=== PATIENT | female | born 1990 | race Two or more races ===

== ENCOUNTER 2018-03-15 14:56 | Emergency (ER) | payer MEDICAID ==
[~2018-03-15] VITALS: Ht 172.7 cm; Wt 79.6 kg
[2018-03-15 15:02] VITALS: BP 108/68
[2018-03-15] MEDS ORDERED: LIDOCAINE-MPF 2% ,5ML ONE (15:25)
[2018-03-15] MEDS ORDERED: LIDOCAINE-MPF 1%, 5ML INFIL ONE (15:30)
== END 2018-03-15 16:23 | disposition home or self-care (01) ==
LOC: ED 16:00
DX: L03.221 Cellulitis of neck (principal); F11.20 Opioid dependence, uncomplicated
CPT/HCPCS: 99283